=== PATIENT | female | born 1965 | race Caucasian/White ===

== ENCOUNTER 2017-10-16 16:16 | Emergency (ER) | payer OTHER, SELFPAY | END 2017-10-16 17:15 | disposition home or self-care (01) | PROVIDERS: Emergency Provider Nurse Practitioner; Family Provider Family Medicine; Visit Provider Nurse Practitioner | DX: M25.561 Pain in right knee (principal); Z79.82 Long term (current) use of aspirin; Z79.899 Other long term (current) drug therapy | CPT/HCPCS: 73562; 99201 ==

== ENCOUNTER → 2020-07-24 12:34 | Outpatient (CLI) | payer OTHER, SELFPAY ==
--- NOTE | 2020-07-24 12:45 | XR_ITS ---
PROCEDURE: XR LUMBAR SPINE MIN 4V CLINICAL INDICATION: LOW BACK PAIN COMPARISON: No exams were available for comparison FINDINGS: No fracture or dislocation. No lytic or blastic change. There is normal mineralization. The joint spaces are well-preserved. No significant degenerative/arthritic changes. No erosive changes evident. Other findings:None. IMPRESSION: No acute findings. Dictated by: Mitul Isaacs MD 07/24/2020 13:09 Mitul Isaacs MD in [place] 07/24/2020 13:09
== END ==
PROVIDERS: PCP Nurse Practitioner Family; Visit Provider Nurse Practitioner Family
DX: M54.41 Lumbago with sciatica, right side (principal)
CPT/HCPCS: 72110

== ENCOUNTER 2020-08-02 14:40 | Outpatient (RCR) | payer OTHER, SELFPAY ==
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
== END 2020-08-02 15:20 | disposition home or self-care (01) ==
LOC: PT 14:40
PROVIDERS: PCP Nurse Practitioner Family; Visit Provider Nurse Practitioner Family
DX: M54.41 Lumbago with sciatica, right side (principal); M53.3 Sacrococcygeal disorders, not elsewhere classified
CPT/HCPCS: 97163

== ENCOUNTER 2020-08-09 11:14 | Emergency (ER) | payer OTHER, SELFPAY ==
[2020-08-09 11:19] VITALS: BP 109/86; PULSE 82; RESP 16; TEMP 37.1; O2SAT 100; BMI 25.2
--- NOTE | 2020-08-09 11:30 | XR_ITS ---
PROCEDURE: XR HIP RT 2-3V W/PELVIS CLINICAL INDICATION: pain, fell COMPARISON: CR XR LUMBAR SPINE MIN 4V from 07/24/2020 FINDINGS: There is a nondisplaced fracture involving the medial aspect of the right inferior pubic ramus as well as the junction of the superior pubic ramus with the ischial on the right. In addition there is a cortical area of disruption involving the iliopectineal line on the right superiorly just lateral to the SI joint also suspicious for a nondisplaced fracture. CT may confirm this finding. The femoral neck has an unremarkable appearance. IMPRESSION: 1. Nondisplaced right superior and inferior pubic ramus fracture. 2. Avulsion type of fracture of the right ilium at the superior aspect of the iliopectineal line. CT may confirm Dictated by: Mitul Isaacs MD 08/09/2020 12:25 Mitul Isaacs MD in [place] 08/09/2020 12:25
--- NOTE | 2020-08-09 11:30 | PC.NURSE ---
rad notified of xray orders
--- NOTE | 2020-08-09 12:25 | HMH.EDGENADL ---
ED Disposition Clinical Impression: Pelvic fracture Qualifiers: Encounter type: initial encounter Pelvic bone location: multiple parts Fracture type: closed Fracture alignment: without disruption of pelvic ring Qualified Code(s): S32.82XA - Multiple fractures of pelvis without disruption of pelvic ring, initial encounter for closed fracture Disposition: Home, Self-Care Condition on Discharge: Fair Instructions: DI for Pelvic Fracture Additional Instructions: Crutches until follow-up with orthopedics. Call Dr. Hardy to arrange orthopedic follow-up within 2 weeks. Off work until you see Dr. Hardy. Tramadol for pain. Additional instructions for CONTROLLED SUBSTANCES: You have been prescribed a medication that is a controlled substance. Controlled substances include pain medications known as opiates and sedative nerve medications known as benzodiazepines. Tramadol, fioricet, and gabapentin are also controlled substances. Some common opiates include: Codeine (such as Tylenol #3) Hydrocodone (Vicodin, Lortab, Lorcet, [place]) Oxycodone (Percocet, Percodan, Oxycodone, Oxy IR) Some common benzodiazepines include: Diazepam (Valium) Lorazepam (Ativan) Alprazolam (Xanax) Clonazepam (Klonopin) Oxazepam (Serax) All of these controlled substances are highly addictive and frequently abused. Misuse can and frequently does lead to addiction as well as overdose and . Medication should be stored in a locked cabinet or other secure storage unit. Do not store the medication in a motor vehicle. Short term supplies, 3 days or less, are prescribed because of the highly addictive nature of the medication. Any of the controlled substance medication NOT taken should be disposed of properly and NOT SAVED. The recommended method of disposing of unused medications is: Place the medicines in a sealable plastic bag. If the medicine is a solid, crush it or add water to dissolve it. Add something undesirable (cat litter, coffee grounds, etc.) Dispose of sealed bag in household trash Do not flush or pour unused medicines down a sink or drain. Controlled substances should not be shared, given away or sold. Because of the addictive nature and frequent abuse, these medications are sometimes stolen. These medications should be kept in a safe place where they cannot be stolen. Do not keep them in your car or purse. Lost or stolen prescriptions for controlled substances WILL NOT BE REFILLED in this emergency department, regardless of whether a police report was filed. Prescriptions: Tramadol HCl [Tramadol 50mg Tab] 50 mg PO Q6HP PRN #20 tab PRN Reason: Moderate Pain Prescription Printed Referrals: Agustin Pickett MD [Primary Care Provider] - Lisandro Hardy MD [Staff Physician] - Forms: Work/School Release - Critical Care Critical Care Time: No Attestation: On 08/09/20, the high probability of a clinically significant, sudden or life threatening deterioration of the following system(s) required my full and direct attention, intervention and personal management. The time I documented below is in addition to time spent performing reported procedures but includes the following listed in this critical care notation. Medical Decision Making - Dae Inquiry Pt receiving controlled substance: Yes Dae was queried for this patient: No Reason not queried -: Emergent pt cond-no time Risks and benefits of using a controlled substance: were discussed with pt by me Vital Signs: 08/09/20 11:19 08/09/20 12:42 Temperature 98.8 F Temperature Source Oral Pulse Rate [Right Radial] 82 70 Respiratory Rate 16 Blood Pressure [Right Arm] 109/86 L 111/76 Blood Pressure Mean [Right Arm] 93 87 Blood Pressure Source [Right Arm] Automatic Cuff Blood Pressure Position [Right Arm] Sitting Sitting 02 Sat by Pulse Oximetry 100 100 Oxygen Delivery Method Room Air Room Air Orders (Tests/Meds): ORDERS Category Date Ti
--- NOTE | 2020-08-09 12:37 | XR_ITS ---
PROCEDURE: XR KNEE RT 3V CLINICAL INDICATION: pain COMPARISON: CR KNEE3R KNEE-3 VIEWS-RT from 10/16/2017 FINDINGS: Moderate osteoarthritic changes are present involving all 3 compartments. No acute fracture or dislocation is evident. Other findings:None. IMPRESSION: Osteoarthritis, no acute fracture Dictated by: Mitul Isaacs MD 08/09/2020 15:32 Mitul Isaacs MD in [place] 08/09/2020 15:32
--- NOTE | 2020-08-09 12:37 | CT_ITS ---
PROCEDURE: CT PELVIS WO CON CLINICAL INDICATION: pelvic fracture Right-sided pelvic pain following injury COMPARISON: No exams were available for comparison TECHNIQUE: Axial images obtained with sagittal and coronal reformats. All CT scans at the facility use one or more dose reduction, viz: automated exposure control, ma/kV adjustment per patient size (including targeted exams where dose is matched to indication, i.e. head), or iterative reconstruction technique. FINDINGS: There is a nondisplaced fracture involving the mid aspect of the right inferior pubic ramus and a nondisplaced fracture involving the right superior pubic ramus at its junction with the ischial M. this is best detected on series 601, image 56 through 59. This may only involve the superior cortical surface. The fracture does not appear to extend into the acetabulum. MRI may confirm. There is mild widening of the right SI joint. There is a nondisplaced fracture involving the right ilium just lateral to the inferior aspect of the SI joint. This extends posteriorly and laterally and somewhat superiorly. This is best demonstrated on coronal image series 601, image 69. At this area, there is ill-defined calcification both anterior and posterior to the ileum suggesting that this may represent a healing fracture with periosteal reaction. The right iliacus muscle is slightly more prominent than the left side. There is a small bone island in the left femoral head and within the left ilium. There is a mild bulging disc eccentric toward the left at L5-S1. There is a hemangioma involving the L5 vertebral body on the left. There is a small umbilical hernia which contains fat. There has been a prior hysterectomy. IMPRESSION: 1. Acute nondisplaced fracture of the right superior and inferior pubic ramus. 2. Nondisplaced fracture of the right ilium just inferior to the level of the SI joint which may represent a healing or subacute fracture as there does appear to be some periosteal reaction or calcification at the site of the fracture. Suggest follow-up to confirm stability of the calcification as other etiologies of periosteal calcification are not excluded such as neoplasm. 3. Mild widening of the right SI joint Dictated by: Mitul Isaacs MD 08/09/2020 13:35 Mitul Isaacs MD in [place] 08/09/2020 13:35
--- NOTE | 2020-08-09 12:37 | XR_ITS ---
PROCEDURE: XR KNEE LT 3V CLINICAL INDICATION: pain COMPARISON: CR KNEE3R KNEE-3 VIEWS-RT from 10/16/2017 CR XR KNEE RT 3V from 08/09/2020 FINDINGS: No fracture or dislocation. No lytic or blastic change. There is normal mineralization. There are mild osteoarthritic changes of all 3 compartments. There is a suprapatellar effusion. There is mild chondrocalcinosis of the lateral compartment. Other findings:None. IMPRESSION: Osteoarthritis with suprapatellar effusion Dictated by: Mitul Isaacs MD 08/09/2020 15:46 Mitul Isaacs MD in [place] 08/09/2020 15:46
--- NOTE | 2020-08-09 12:41 | PC.NURSE ---
harrison notified of new orders on pt, spoke with Artemio
[2020-08-09 12:42] VITALS: BP 111/76; PULSE 70; O2SAT 100
--- NOTE | 2020-08-09 14:04 | PC.NURSE ---
RIAZ ALONZO speaking with Dr. Hardy
--- NOTE | 2020-08-09 14:08 | PC.NURSE ---
Mechelle in the surgical suite called with a follow up appt for pt. Aug 23 at 2:30 pm states to have pt come at least 30 minutes early for xrays-register in the front lobby for xrays and then come to the office for appt.
[2020-08-09 14:54] VITALS: BP 128/83; PULSE 78; RESP 19; TEMP 37.1; O2SAT 97
== END 2020-08-09 14:57 | disposition home or self-care (01) ==
PROVIDERS: Emergency Provider Emergency Medicine; PCP Family Medicine
DX: S32.511A Fracture of superior rim of right pubis, initial encounter for closed fracture (principal); W01.0XXA Fall on same level from slipping, tripping and stumbling without subsequent striking against object, initial encounter; Y92.69 Other specified industrial and construction area as the place of occurrence of the external cause; Y99.0 Civilian activity done for income or pay; D64.9 Anemia, unspecified; Z90.49 Acquired absence of other specified parts of digestive tract; Z90.09 Acquired absence of other part of head and neck; Z90.710 Acquired absence of both cervix and uterus
CPT/HCPCS: 72192; 73502; 73562; 99282

== ENCOUNTER → 2020-08-23 13:36 | Outpatient (CLI) | payer OTHER, SELFPAY ==
--- NOTE | 2020-08-23 13:47 | XR_ITS ---
PROCEDURE: XR HIP RT 2-3V W/PELVIS CLINICAL INDICATION: RT pubic rami fracture follow up Follow-up fracture COMPARISON: CR XR HIP RT 2-3V W/PELVIS from 08/09/2020 FINDINGS: Healing nondisplaced fractures are present involving the right superior pubic ramus laterally in the inferior pubic ramus centrally. Mild osteoarthritic changes are present at the hips. Avulsion type fracture noted involving the right ilium superiorly and medially just lateral to the SI joint as before with mild widening of the right SI joint as before. IMPRESSION: Healing nondisplaced fracture of the pubic rami the right Dictated by: Mitul Isaacs MD 08/23/2020 15:30 Mitul Isaacs MD in [place] 08/23/2020 15:30
== END ==
PROVIDERS: PCP Family Medicine; Visit Provider Orthopaedic Surgery
DX: S32.9XXA Fracture of unspecified parts of lumbosacral spine and pelvis, initial encounter for closed fracture (principal)
CPT/HCPCS: 73502

== ENCOUNTER → 2020-09-19 12:37 | Outpatient (CLI) | payer OTHER, SELFPAY ==
--- NOTE | 2020-09-19 12:41 | XR_ITS ---
PROCEDURE: XR HIP RT 2-3V W/PELVIS CLINICAL INDICATION: RT ilimum and pelvic fx fu Follow-up fracture COMPARISON: CR XR HIP RT 2-3V W/PELVIS from 08/09/2020 CR XR HIP RT 2-3V W/PELVIS from 08/23/2020 FINDINGS: Healing fractures present involving the junction of the right superior pubic ramus with the ischium and the mid aspect of the right inferior pubic ramus. Developing callus formation is present. The right hip has an unremarkable appearance aside from mild osteoarthritic changes. There remains mild widening of the right SI joint not significantly changed with a small fracture along the iliopectineal line superiorly on the right unchanged. There is a small sclerotic focus in the left ilium laterally not significantly changed IMPRESSION: No change right-sided fractures as described Dictated by: Mitul Isaacs MD 09/19/2020 15:34 Mitul Isaacs MD in [place] 09/19/2020 15:34
== END ==
PROVIDERS: PCP Family Medicine; Visit Provider Orthopaedic Surgery
DX: S32.301D Unspecified fracture of right ilium, subsequent encounter for fracture with routine healing (principal); S32.9XXA Fracture of unspecified parts of lumbosacral spine and pelvis, initial encounter for closed fracture
CPT/HCPCS: 73502

== ENCOUNTER → 2020-12-12 14:02 | Outpatient (CLI) | payer OTHER, SELFPAY ==
--- NOTE | 2020-12-12 14:10 | XR_ITS ---
PROCEDURE: XR HIP RT 2-3V W/PELVIS CLINICAL INDICATION: rt pubic rami fracture fu Fracture follow up COMPARISON: CR XR HIP RT 2-3V W/PELVIS from 09/19/2020 FINDINGS: Healing right superior and inferior pubic rami fractures are present. Mild osteoarthritic changes are present in the right hip. IMPRESSION: Healing nondisplaced right superior and inferior pubic rami fractures Dictated by: Mitul Isaacs MD 12/12/2020 14:34 Mitul Isaacs MD in [place] 12/12/2020 14:34
== END ==
PROVIDERS: PCP Family Medicine; Visit Provider Orthopaedic Surgery
DX: S32.301D Unspecified fracture of right ilium, subsequent encounter for fracture with routine healing (principal); S32.9XXA Fracture of unspecified parts of lumbosacral spine and pelvis, initial encounter for closed fracture
CPT/HCPCS: 73502

== ENCOUNTER → 2021-01-05 17:16 | Outpatient (CLI) | payer OTHER, SELFPAY ==
[2021-01-05 18:15] LABS: Basophils % 0.4 % (0.1-2.0); Eosinophils # 0.2 K/mm3 (0.0-0.4); Eosinophils % 2.4 % (0.1-12.0); Hematocrit 44.5 % (37.0-47.0); Hemoglobin 14.7 g/dL (12.2-16.2); Lymphocytes # 2.3 K/mm3 (0.7-4.5); Mean Corpuscular HGB Conc 32.9 g/dL (31.8-35.4); Mean Corpuscular Hemoglobin 29.3 pg (27.0-31.2); Mean Platelet Volume 8.3 fl (7.4-10.4); Monocytes # 0.5 K/mm3 (0.1-1.0); Monocytes % 5.6 % (1.7-9.3); Neutrophils # 5.6 K/mm3 (1.8-7.8); Neutrophils % 64.5 % (37.0-80.0); Platelet Count 310 K/mm3 (142-424); White Blood Count 8.6 K/mm3 (4.8-10.8)
[2021-01-05 18:22] LABS: Alanine Aminotransferase 26 U/L (12-78); Albumin Level 4.9 g/dl (3.5-5.0); Albumin/Globulin Ratio 1.3 (1.1-1.8); Alkaline Phosphatase 100 U/L (38-126); Anion Gap 11.4 mEq/L (5-15); Aspartate Amino Transferase 28 U/L (14-36); Bilirubin,Total 0.4 mg/dl (0.2-1.3); Blood Urea Nitrogen 16 mg/dl (7-17); Calcium 10.1 mg/dl (8.4-10.2); Carbon Dioxide 28 mmol/L (22.0-30.0); Chloride 104 mmol/L (98-107); Chol/HDL Ratio 4.7 (1-3.5); Cholesterol 264 mg/dl (140-200); Estimated Glomerular Filt Rate 87 ml/min (>60); GFR (African American) 106 ML/MIN (>60); Globulin 3.7 g/dL (1.3-3.2); Glucose 113 mg/dl (74-100); HDL Cholesterol 56 mg/dl (40-60); Potassium 4.4 mmoL/L (3.5-5.1); Sodium 139 mmol/L (136-145); Total Protein,Serum 8.6 g/dl (6.3-8.2); Triglycerides 119 mg/dl (30-150); VLDL Cholesterol 24 mg/dL (0-40)
[2021-01-05 18:33] LABS: Direct LDL Cholesterol 173.04 mg/dL (100-129)
[2021-01-05 18:39] LABS: T4 (Thyroxine) 11.5 ug/dl (5.53-11.0)
[2021-01-05 18:40] LABS: 25-OH Vitamin D, Total 61.1 ng/mL (30-100)
[2021-01-05 18:53] LABS: Thyroid Stimulating Hormone 4.35 uIU/mL (0.465-4.68)
== END ==
PROVIDERS: Visit Provider Nurse Practitioner Family
DX: M81.0 Age-related osteoporosis without current pathological fracture (principal)
CPT/HCPCS: 80053; 80061; 82306; 84436; 84443; 85025

== ENCOUNTER → 2021-01-31 17:47 | Outpatient (CLI) | payer OTHER, SELFPAY ==
[2021-01-31 18:41] LABS: Hemoglobin A1C 5.9 % (4.0-6.0)
== END ==
PROVIDERS: Visit Provider Nurse Practitioner Family
DX: R73.09 Other abnormal glucose (principal)
CPT/HCPCS: 83036

== ENCOUNTER → 2021-02-19 09:42 | Outpatient (CLI) | payer OTHER, SELFPAY ==
--- NOTE | 2021-02-19 09:42 | MM_ITS ---
PROCEDURE: MM DIG SCREENING MAMM BI W/CAD Digital Breast Tomosynthesis Included CLINICAL INDICATION: screening for breast ca There is no personal or family history of breast cancer. There has been a previous biopsy right breast for benign disease. Patient complains of sharp pains left breast past couple of days COMPARISON: MG DMSB DIGITAL MAMM-SCREEN BILATERAL from 12/19/2011 MG DMSB DIG MAMM-SCREEN ABELARDO from 08/19/2014 MG DMDXUR DIG MAMM-DX UNI-RT from 06/19/2015 MG DMSB DIG MAMM-SCREEN ABELARDO from 12/15/2015 TECHNIQUE: Standard CC and MLO images and 3D Tomosynthesis was obtained. R2 CAD reviewed. FINDINGS: Moderate scattered fibroglandular densities are seen in the central portions of both breasts. There is a biopsy clip right breast. There is a mole marker on each breast. There is a benign-appearing microcalcification right breast probably a calcified oil cyst. There is no suspicious lesion and no suspicious microcalcifications. There are fatty replaced nodes in both axilla. IMPRESSION: Moderate breast density with no suspicious lesions seen BI-RAD Category: 2 Benign Finding(s) FOLLOW-UP: 1YR 1 Year Follow-up (A letter has been sent to the patient regarding results of the study.) Dictated by: Dr. Dwight Morris MD 02/20/2021 07:58 Dr. Dwight Morris MD in [place] 02/20/2021 07:58
== END ==
PROVIDERS: PCP Emergency Medicine; Visit Provider Nurse Practitioner Family
DX: Z12.31 Encounter for screening mammogram for malignant neoplasm of breast (principal)
CPT/HCPCS: 77063; 77067

== ENCOUNTER → 2021-04-03 08:06 | Outpatient (CLI) | payer OTHER, SELFPAY | PROVIDERS: Visit Provider Internal Medicine Gastroenterology | DX: Z01.812 Encounter for preprocedural laboratory examination (principal); Z20.822 Contact with and (suspected) exposure to COVID-19; Z12.11 Encounter for screening for malignant neoplasm of colon | CPT/HCPCS: U0003 ==

== ENCOUNTER 2021-04-06 07:40 | Day surgery (SDC) | payer OTHER, SELFPAY ==
[2021-03-27 09:53] VITALS: BMI 29.5
[2021-04-06] VITALS (7 sets, daily range): BP systolic 110–153; BP diastolic 68–98; PULSE 60–97; RESP 18; TEMP 36.3–36.7; O2SAT 95–99
[2021-04-06 08:22] LABS: POC Glucose,Bedside 111 (70-110)
--- NOTE | 2021-04-06 08:55 | HMH.ANESCL ---
[facility] Anesthesia Checklist - Patient Identification Patient Identification: Arm Band - Structural Data Admitted From: Home Planned Operative Procedure/s: colonoscopy Consent for Planned Operative Procedure(s) Verified: Yes Verified Documents: Surgical Consent, History and Physical - NPO Status Verified Time NPO: 00:00 - Additional verifications Anesthesia Reactions: No - Airway Assessment C-Spine Mobility Assessed: Yes (mp2) TMJ Mobility Assessed: Yes Dentition: Good Dentition - Neurological Assessment Level of Consciousness: Awake, Alert - Anesthesia Plan Anesthesia Risk discussed: Yes Anesthesia Plan: Verified ASA Class: II Anesthesia Type: MAC [facility] History I have reviewed the patient's past medical history: Yes Medical History: Reports:: Cancer (cervix) Denies:: Diabetes Mellitus Type 1, Diabetes Mellitus Type 2 (pre diabetic), Internal Pacemaker, MRSA, Seizures *Have you ever received a pneumonia vaccine?: No *Have you received a flu vaccine this season?: No Other Medical History: Reports: Anemia Anesthesia experience/problems:: nac Laterality Cases: Right: Arthroscopy Knee, Breast Biopsy, Bilateral: Tonsillectomy Other Surgeries: Yes: Appendectomy, Hysterectomy-Total, Other. No: Pacemaker Amputation: No Fractures: No - *Social History Last grade of school completed: Advanced degree Smoking Status: Never smoker Alcohol Intake: never Substance Use Type: denies use *Occupational Status:: unemployed Housing: house Household Members: spouse *Travel in the last 8 weeks: None Family Hx:: Cancer
--- NOTE | 2021-04-06 09:26 | HMH.PROC ---
[facility] Procedure Note Procedure Note:: Colonoscopy Procedure Report: Colonoscopy with cold snare polypectomy Endoscopist: Alexander Sutherland II, MD Referring physician: ARNOL Bowling Date of Procedure: April 06, 2021 Equipment: Olympus 190 variable stiffness pediatric colonoscope Sedation: MAC sedation Indication: Mrs. Rojas is a 55-year-old female who is here for diagnostic colonoscopy secondary to a positive Cologuard test. She reports no abdominal pain, weight loss, change in her bowel habits or rectal bleeding. She reports no family history of colon cancer. This is her first colonoscopy. Procedure: Prior to the procedure, a history and physical exam was performed, and patient's medications and allergies were reviewed. The risks, benefits and alternatives of the sedation and procedure were discussed with the patient. All questions were answered and informed consent was obtained. The patient was brought to the procedure room. Patient identification and proposed procedure were verified by the physician and the nurse. The patient was placed in a left lateral decubitus position and the scope was passed under direct vision. Throughout the procedure, the patient's blood pressure, pulse, and oxygen saturations were monitored continuously. The colonoscopy was accomplished without difficulty. The patient tolerated the procedure well. Findings: On digital rectal examination there was normal rectal tone. There were no external hemorrhoids. Palpably, there was a mass along the left lateral margin of the rectum approximately 8 cm from the anal verge. The colonoscope was introduced through the anal canal to the rectum and advanced to the cecum. The ileocecal valve and appendiceal orifice were identified. The scope was advanced a short distance into the ileum which appeared grossly normal. The scope was then withdrawn into the colon. There were 3 diminutive polyps of the cecum (3, 3 and 4 mm) and 1 polyp of the sigmoid (6 mm) which were removed via cold snare polypectomy and placed in the cecal formalin jar. The remainder of the cecum, ascending, transverse, descending and sigmoid colon were normal. Within the rectum at approximately 8 cm from the anal verge was a large bulbous multilobulated polypoid mass lesion that encompassed one half the circumference of the rectal lumen and was left lateral lumen. Multiple sections were removed and this appeared to be advanced villous adenoma with possible early adenocarcinoma. This encompassed 4.5 to 5 cm. This did not extend into the distal rectum. This was palpable digitally along the left lateral margin and did not appear to be fixed. The distal rectum was not involved and upon retroflexion within the rectum there were grade 1-2 internal hemorrhoids.The preparation was excellent throughout with [place] Preparation Score of 9. The cecal time was 14 minutes. Impression: 1. Large rectal mass (4.5 to 5 cm)?along left lateral margin 8 cm from anal verge?advanced adenoma (probable villous adenoma and possible early adenocarcinoma) 2. 4 diminutive colon polyps Plan: I will follow up the polyp histology. If pathology shows a villous adenoma without dysplasia, this may possibly be removed via endoscopic mucosal resection/endoscopic mucosal dissection. If there is high-grade dysplasia or adenocarcinoma, favorably, surgical resection is warranted. I will obtain CEA level and labs (CBC, iron studies). I will await the pathology.
[2021-04-06 10:23] LABS: Basophils % 0.4 % (0.1-2.0); Eosinophils # 0.1 K/mm3 (0.0-0.4); Eosinophils % 0.5 % (0.1-12.0); Hematocrit 41.7 % (37.0-47.0); Hemoglobin 13.9 g/dL (12.2-16.2); Lymphocytes # 1.2 K/mm3 (0.7-4.5); Lymphocytes % 12.8 % (10-50); Mean Corpuscular HGB Conc 33.4 g/dL (31.8-35.4); Mean Corpuscular Hemoglobin 29.2 pg (27.0-31.2); Mean Corpuscular Volume 87.5 fl (81-99); Mean Platelet Volume 8.4 fl (7.4-10.4); Monocytes # 0.3 K/mm3 (0.1-1.0); Monocytes % 3.1 % (1.7-9.3); Neutrophils # 7.9 K/mm3 (1.8-7.8); Neutrophils % 83.1 % (37.0-80.0); Platelet Count 294 K/mm3 (142-424); Red Blood Count 4.77 M/mm3 (4.20-5.40); Red Cell Distribution Width 12.7 % (11.5-17.5); White Blood Count 9.5 K/mm3 (4.8-10.8)
[2021-04-06 10:56] LABS: Alanine Aminotransferase 34 U/L (12-78); Albumin Level 4.5 g/dl (3.5-5.0); Albumin/Globulin Ratio 1.5 (1.1-1.8); Alkaline Phosphatase 88 U/L (38-126); Anion Gap 10.3 mEq/L (5-15); Aspartate Amino Transferase 31 U/L (14-36); Bilirubin,Total 0.5 mg/dl (0.2-1.3); Blood Urea Nitrogen 15 mg/dl (7-17); Calcium 9.4 mg/dl (8.4-10.2); Carbon Dioxide 28 mmol/L (22.0-30.0); Chloride 110 mmol/L (98-107); Creatinine Clearance Estimated 133 mL/min (50-200); Estimated Glomerular Filt Rate 104 ml/min (>60); GFR (African American) 126 ML/MIN (>60); Globulin 3.1 g/dL (1.3-3.2); Glucose 113 mg/dl (74-100); Potassium 4.3 mmoL/L (3.5-5.1); Sodium 144 mmol/L (136-145); Total Protein,Serum 7.6 g/dl (6.3-8.2)
[2021-04-06 11:26] LABS: Iron 45 ug/dL (37-170)
[2021-04-06 11:38] LABS: Total Iron Binding Capacity 319 ug/dL (265-497)
[2021-04-06 12:06] LABS: Ferritin 54.8 ng/ml (11.1-264)
[2021-04-07 08:53] LABS: CEA 0.6 ng/mL (0.0-4.7)
== END 2021-04-06 10:24 | disposition home or self-care (01) ==
LOC: OUTP 07:41
PROVIDERS: PCP Nurse Practitioner Family; Visit Provider Internal Medicine Gastroenterology
PROC: 0DJD8ZZ Inspection of Lower Intestinal Tract, Via Natural or Artificial Opening Endoscopic (ICD-10-PCS; CPT 45378; principal; 2021-04-06 09:00)
DX: D12.0 Benign neoplasm of cecum (principal); D12.5 Benign neoplasm of sigmoid colon; D12.8 Benign neoplasm of rectum; Z85.41 Personal history of malignant neoplasm of cervix uteri; Z80.9 Family history of malignant neoplasm, unspecified; Z79.82 Long term (current) use of aspirin
CPT/HCPCS: 45385; 80053; 82378; 82728; 82962; 83540; 83550; 85025

== ENCOUNTER 2021-07-05 09:01 | Emergency (ER) | payer OTHER, SELFPAY ==
[2021-07-05 09:05] VITALS: BP 132/86; PULSE 95; RESP 18; TEMP 37; O2SAT 99; BMI 28.9
--- NOTE | 2021-07-05 09:44 | HMH.EDUTC ---
[facility] [place] Clinical Impression: Viral syndrome, Exposure to COVID-19 virus Disposition: Home, Self-Care Condition on Discharge: Good Instructions: DI for COVID-19 (Suspected or Confirmed ), Preventing the Spread of Coronavirus Discharge Instructions Additional Instructions: Drink plenty of fluids. Take tylenol for pain or fever. Return if you begin to have difficulty breathing. Follow up with your regular doctor. GO TO THE ER FOR ANY WORSENING SYMPTOMS Quarantine until you know the results of your covid-19 test. If it is positive, the health department should call you and give you further instructions about your length of Quarantine and other things. Notify your school or workplace of your results and follow their instructions regarding return to work/school. Referrals: Lisa Tijerina APRN [Primary Care Provider] - Time of Disposition: 09:45 Medical Decision Making - Medical Records Medical records reviewed: No: I reviewed the patient's medical records. - Dae Inquiry Pt receiving controlled substance: No Vital Signs: 07/05/21 09:05 07/05/21 09:49 Temperature 98.6 F 98.6 F Temperature Source Oral Pulse Rate 95 H Pulse Rate [Right Brachial] 95 H Respiratory Rate 18 18 Blood Pressure 132/86 Blood Pressure [Right Arm] 132/86 Blood Pressure Mean [Right Arm] 101 Blood Pressure Source [Right Arm] Automatic Cuff Blood Pressure Position [Right Arm] Sitting 02 Sat by Pulse Oximetry 99 Oxygen Delivery Method Room Air [facility] [place]PI - General Stated complaint: s throat, cough,sob, head, bodyaches, no taste Time Seen by Provider: 07/05/21 09:15 Mode of Arrival: Ambulatory Source of Information: Patient Limitations: No Limitations Description of Symptoms (Recalled from Triage Doc. by RN): PATIENT C/O HEADACHE, NAUSEA, VOMITING, AND BODY ACHES THAT STARTED YESTERDAY. REQUESTING COVID TEST HEENT Symptoms (Recalled from RN notes): Yes Resp Symptoms (Recalled from RN notes): No Skin Symptoms (Recalled from RN notes): No MS Symptoms (Recalled from RN notes): No Functional Status (Recalled from RN notes): WNL - History of Present Illness Provider Complaint: She has been having gi upset, scratchy sore throat and she has felt bad for the past 2 days. She has been vaccinated against covid-19, but she would like to be checked. - Related Data Home Medications Medication Instructions Recorded Confirmed vitamin B12 500 mcg-folic acid 400 1 tab PO QDAY 11/19/17 05/03/21 mcg tablet multivitamin 1 tab PO DAILY 01/05/21 05/03/21 Aspirin [Aspirin 81mg EC Tab] 81 mg PO DAILY 03/27/21 05/03/21 Blood-Glucose Meter [Blood Glucose See Rx Instructions .ROUTE 03/27/21 05/03/21 Meter] .MEDSUPPLY Calcium Carbonate [Calcium] 600 mg PO DAILY 03/27/21 05/03/21 Cholecalciferol (Vitamin D3) 50 mcg PO DAILY 03/27/21 05/03/21 [Vitamin D3] Lancets See Rx Instructions .ROUTE 03/27/21 05/03/21 .MEDSUPPLY Previous Rx's Medication Instructions Recorded alprazolam 0.25 mg tablet 0.25 mg PO BID PRN #14 tab 05/03/21 blood sugar diagnostic See Rx Instructions .ROUTE 05/03/21 .MEDSUPPLY #50 each Allergies Allergy/AdvReac Type Severity Reaction Status Date / Time No Known Allergies Allergy Verified 05/03/21 09:31 - Worker's Comp Is this a Worker's Comp case?: No [facility] History - Hepatitis A Screen Drug use history?: No High risk sexual behaviors?: No History of sexually transmitted infection?: No Currently employed?: No Childcare worker?: No Do you have indoor plumbing?: Yes Do you have electricity?: Yes Attestation statement:: This patient has been screened for Hepatitis A risk factors. I have reviewed the patient's past medical history: Yes Medical History: Reports:: Cancer Denies:: Diabetes Mellitus Type 1, Diabetes Mellitus Type 2, Internal Pacemaker, MRSA, Seizures Other Medical History: Reports: Anemia Laterality Cases: Right: Arthroscopy Knee, Breast Biopsy, [place]
[2021-07-05 09:49] VITALS: BP 132/86; PULSE 95; RESP 18; TEMP 37; O2SAT 99
== END 2021-07-05 09:53 | disposition home or self-care (01) ==
PROVIDERS: Emergency Provider Nurse Practitioner Family; PCP Nurse Practitioner Family
DX: B34.9 Viral infection, unspecified (principal); Z20.822 Contact with and (suspected) exposure to COVID-19
CPT/HCPCS: 99202; G0463; U0003

== ENCOUNTER → 2021-08-03 09:06 | Outpatient (CLI) | payer OTHER, SELFPAY ==
[2021-08-03 09:30] LABS: Basophils % 0.5 % (0.1-2.0); Eosinophils # 0.2 K/mm3 (0.0-0.4); Eosinophils % 2.5 % (0.1-12.0); Hematocrit 43.6 % (37.0-47.0); Hemoglobin 14.5 g/dL (12.2-16.2); Lymphocytes % 27.5 % (10-50); Mean Corpuscular HGB Conc 33.3 g/dL (31.8-35.4); Mean Corpuscular Hemoglobin 29.6 pg (27.0-31.2); Mean Corpuscular Volume 88.9 fl (81-99); Mean Platelet Volume 8.6 fl (7.4-10.4); Monocytes # 0.4 K/mm3 (0.1-1.0); Monocytes % 5.1 % (1.7-9.3); Neutrophils # 4.6 K/mm3 (1.8-7.8); Neutrophils % 64.4 % (37.0-80.0); Platelet Count 314 K/mm3 (142-424); Red Cell Distribution Width 12.7 % (11.5-17.5); White Blood Count 7.1 K/mm3 (4.8-10.8)
[2021-08-03 10:14] LABS: Alanine Aminotransferase 33 U/L (12-78); Albumin Level 4.4 g/dl (3.5-5.0); Albumin/Globulin Ratio 1.3 (1.1-1.8); Alkaline Phosphatase 80 U/L (38-126); Anion Gap 11.3 mEq/L (5-15); Aspartate Amino Transferase 29 U/L (14-36); Bilirubin,Total 0.2 mg/dl (0.2-1.3); Blood Urea Nitrogen 13 mg/dl (7-17); Calcium 9.7 mg/dl (8.4-10.2); Carbon Dioxide 28 mmol/L (22.0-30.0); Chloride 106 mmol/L (98-107); Chol/HDL Ratio 4.8 (1-3.5); Cholesterol 239 mg/dl (140-200); Estimated Glomerular Filt Rate 128 ml/min (>60); GFR (African American) 155 ML/MIN (>60); Globulin 3.3 g/dL (1.3-3.2); Glucose 110 mg/dl (74-100); HDL Cholesterol 50 mg/dl (40-60); Potassium 4.3 mmoL/L (3.5-5.1); Sodium 141 mmol/L (136-145); Total Protein,Serum 7.7 g/dl (6.3-8.2); Triglycerides 144 mg/dl (30-150); VLDL Cholesterol 29 mg/dL (0-40)
[2021-08-03 10:32] LABS: T4 (Thyroxine) 11.9 ug/dl (5.53-11.0)
[2021-08-03 10:45] LABS: Thyroid Stimulating Hormone 3.41 uIU/mL (0.465-4.68)
== END ==
PROVIDERS: Visit Provider Nurse Practitioner Family
DX: R73.03 Prediabetes (principal); E66.9 Obesity, unspecified; Z68.28 Body mass index [BMI] 28.0-28.9, adult
CPT/HCPCS: 36415; 80053; 80061; 83036; 84436; 84443; 85025

== ENCOUNTER → 2022-01-25 16:00 | Outpatient (CLI) | payer OTHER, SELFPAY ==
[2022-01-25 16:07] LABS: Basophils # 0.1 K/mm3 (0-0.2); Eosinophils # 0.2 K/mm3 (0.0-0.4); Eosinophils % 2.8 % (0.1-12.0); Hematocrit 45.4 % (37.0-47.0); Hemoglobin 14.8 g/dL (12.2-16.2); Mean Corpuscular HGB Conc 32.7 g/dL (31.8-35.4); Mean Corpuscular Volume 91.9 fl (81-99); Mean Platelet Volume 9.8 fl (7.4-10.4); Monocytes # 0.5 K/mm3 (0.1-1.0); Monocytes % 5.9 % (1.7-9.3); Neutrophils # 5.2 K/mm3 (1.8-7.8); Neutrophils % 65.4 % (37.0-80.0); Platelet Count 332 K/mm3 (142-424); Red Blood Count 4.94 M/mm3 (4.20-5.40); Red Cell Distribution Width 13.2 % (11.5-17.5); White Blood Count 7.9 K/mm3 (4.8-10.8)
[2022-01-25 17:07] LABS: Hemoglobin A1C 5.9 % (4.0-6.0)
[2022-01-25 17:09] LABS: Chloride 106 mmol/L (98-107)
[2022-01-25 17:10] LABS: Potassium 4.1 mmoL/L (3.5-5.1); Sodium 141 mmol/L (136-145)
[2022-01-25 17:12] LABS: Alanine Aminotransferase 38 U/L (12-78); Alkaline Phosphatase 100 U/L (38-126); Anion Gap 14.1 mEq/L (5-15); Aspartate Amino Transferase 39 U/L (14-36); Bilirubin,Total 0.4 mg/dl (0.2-1.3); Blood Urea Nitrogen 12 mg/dl (7-17); Carbon Dioxide 25 mmol/L (22.0-30.0); Estimated Glomerular Filt Rate 74 ml/min (>60); GFR (African American) 90 ML/MIN (>60)
[2022-01-25 17:13] LABS: Albumin Level 4.5 g/dl (3.5-5.0); Albumin/Globulin Ratio 1.5 (1.1-1.8); Calcium 9.1 mg/dl (8.4-10.2); Chol/HDL Ratio 4.3 (1-3.5); Cholesterol 239 mg/dl (140-200); Globulin 3.1 g/dL (1.3-3.2); Glucose 79 mg/dl (74-100); HDL Cholesterol 56 mg/dl (40-60); Total Protein,Serum 7.6 g/dl (6.3-8.2); Triglycerides 189 mg/dl (30-150); VLDL Cholesterol 38 mg/dL (0-40)
[2022-01-25 17:25] LABS: Direct LDL Cholesterol 142.26 mg/dL (100-129)
[2022-01-25 17:32] LABS: 25-OH Vitamin D, Total 53.1 ng/mL (30-100); T4 (Thyroxine) 11.4 ug/dl (5.53-11.0)
[2022-01-25 17:45] LABS: Thyroid Stimulating Hormone 2.91 uIU/mL (0.465-4.68)
[2022-01-30 10:13] LABS: C-Peptide 4.5 ng/mL (1.1-4.4)
== END ==
PROVIDERS: Visit Provider Nurse Practitioner Family
DX: R73.03 Prediabetes (principal); E66.9 Obesity, unspecified; Z68.31 Body mass index [BMI] 31.0-31.9, adult; Z79.899 Other long term (current) drug therapy
CPT/HCPCS: 80053; 80061; 82043; 82306; 83036; 84436; 84443; 84681; 85025

== ENCOUNTER → 2022-02-14 09:19 | Outpatient (CLI) | payer OTHER, SELFPAY | PROVIDERS: Visit Provider Surgery | DX: Z01.812 Encounter for preprocedural laboratory examination (principal); Z11.52 Encounter for screening for COVID-19 | CPT/HCPCS: C9803; U0003; U0005 ==

== ENCOUNTER → 2022-02-21 09:36 | Outpatient (CLI) | payer OTHER, SELFPAY ==
--- NOTE | 2022-02-21 09:36 | MM_ITS ---
PROCEDURE INFORMATION: Exam: MG Bilateral Screening 3D Mammography Exam date and time: 02/21/2022 9:51 AM Age: 56 years old Clinical indication: Screening examination TECHNIQUE: Imaging protocol: Bilateral Screening tomosynthesis and 2D mammography including computer-aided detection (CAD) when performed. COMPARISON: 1. MG MM DIG SCREENING MAMM BI W/CAD 02/19/2021 10:08 AM 2. MG DMSB DIG MAMM-SCREEN ABELARDO 12/15/2015 4:26 PM FINDINGS: MAMMOGRAPHY: Breast composition: The breasts are heterogeneously dense, which may obscure small masses. Mass: None. Architectural distortion: None. Calcifications: No suspicious calcifications. Asymmetric density: None. Skin thickening: None. Axillary adenopathy: None. IMPRESSION: No mammographic evidence of malignancy. Annual screening is recommended unless otherwise clinically indicated. ASSESSMENT: BI-RADS Category 1: Negative
== END ==
PROVIDERS: PCP Nurse Practitioner Family; Visit Provider Nurse Practitioner Family
DX: Z12.31 Encounter for screening mammogram for malignant neoplasm of breast (principal)
CPT/HCPCS: 77063; 77067

== ENCOUNTER → 2022-03-11 11:45 | Outpatient (CLI) | payer OTHER, SELFPAY ==
[2022-03-11 14:06] LABS: Amphetamine/Metha Screen,Urine Negative ng/ml (<1000); Barbiturates Screen,Urine Negative ng/ml (<200)
[2022-03-11 14:08] LABS: Benzodiazepines Screen,Urine Negative ng/ml (<200); Cannabinoid Screen,Urine Negative ng/ml (<50)
[2022-03-11 14:09] LABS: Cocaine Screen,Urine Negative ng/ml (<300); Methadone Screen,Urine Negative ng/ml (<300)
[2022-03-11 14:10] LABS: Opiate Screen,Urine Negative ng/ml (<300)
[2022-03-11 14:11] LABS: Phencyclidine Screen,Urine Negative ng/ml (<25)
== END ==
PROVIDERS: PCP Nurse Practitioner Family; Visit Provider Nurse Practitioner Family
DX: F41.9 Anxiety disorder, unspecified (principal)
CPT/HCPCS: 80305; 80346

== ENCOUNTER → 2023-07-09 12:47 | Outpatient (CLI) | payer OTHER, SELFPAY ==
--- NOTE | 2023-07-09 12:50 | MM_ITS ---
PROCEDURE INFORMATION: Exam: MG Bilateral Screening 3D Mammography Exam date and time: 07/09/2023 12:51 PM Age: 58 years old Clinical indication: Screening examination TECHNIQUE: Imaging protocol: Bilateral Screening tomosynthesis and 2D mammography including computer-aided detection (CAD) when performed. COMPARISON: 1. MG MM DIG SCREENING MAMM BI W/CAD 02/21/2022 9:51 AM 2. MG MM DIG SCREENING MAMM BI W/CAD 02/19/2021 10:08 AM FINDINGS: MAMMOGRAPHY: Breast composition: The breasts are heterogeneously dense, which may obscure small masses. Mass: Questionable partially circumscribed 0.9 cm mass in the posterior right upper breast only well seen in the MLO projection Architectural distortion: None. Calcifications: No suspicious calcifications. Asymmetric density: None. Skin thickening: None. Axillary adenopathy: None. IMPRESSION: Patient to be recalled for spot compression views of the right breast in the CC and MLO projections, a full 90 degree lateral view, and right breast ultrasound for further evaluation of a right breast mass. ASSESSMENT: BI-RADS Category 0: Incomplete- Need Additional Imaging Evaluation and/or Prior Mammograms for Comparison
== END ==
PROVIDERS: PCP Nurse Practitioner Family; Visit Provider Nurse Practitioner Family
DX: Z12.31 Encounter for screening mammogram for malignant neoplasm of breast (principal)
CPT/HCPCS: 77063; 77067

== ENCOUNTER → 2023-08-25 09:46 | Outpatient (CLI) | payer OTHER, SELFPAY ==
--- NOTE | 2023-08-25 09:50 | US_ITS ---
PROCEDURE INFORMATION: Exam: US Right Breast, Complete MG Right Diagnostic Breast Tomosynthesis Exam date and time: 08/25/2023 9:58 AM Age: 58 years old Clinical indication: Patient recalled on the basis of a screening mammogram for further evaluation; Right breast; mass TECHNIQUE: Imaging protocol: Complete ultrasound of all four quadrants of the right breast and the retroareolar regions, including ultrasound of the axilla when performed. Right Diagnostic tomosynthesis and 2D mammography including computer-aided detection (CAD) when performed. Unilateral or bilateral exam. COMPARISON: MG MM DIG SCREENING MAMM BI W/CAD 07/09/2023 12:51 PM FINDINGS: MAMMOGRAPHY: Digital diagnostic spot compression views of the right breast and 90 degree lateral view of the right breast demonstrate normal overlapping fibroglandular structures without persistent mass or asymmetry identified. ULTRASOUND: Sonographic images of the right breast including the retroareolar region, all 4 quadrants and the axilla do not demonstrate any solid masses. Few scattered predominantly periareolar subcentimeter cysts are present. No architectural distortion or acoustical shadowing. No skin thickening or axillary adenopathy. IMPRESSION: No mammographic or sonographic evidence of malignancy. Annual bilateral mammographic screening is recommended unless otherwise clinically indicated. ASSESSMENT: BI-RADS Category 2: Benign
== END ==
PROVIDERS: PCP Nurse Practitioner Family; Visit Provider Nurse Practitioner Family
DX: R92.8 Other abnormal and inconclusive findings on diagnostic imaging of breast (principal)
CPT/HCPCS: 76641; 77061; 77065; G0279

== ENCOUNTER 2024-02-24 10:50 | Outpatient (CLI) | payer OTHER, SELFPAY ==
--- NOTE | 2024-02-24 10:58 | XR_ITS ---
FINAL REPORT CLINICAL HISTORY: CHEST PAIN after fall, right rib pain COMPARISON: None FINDINGS: RIGHT RIBS: A single view of the chest with 3 views of the right ribs were obtained. There is no acute cardiopulmonary process. No pneumothorax is identified. No displaced rib fracture identified. IMPRESSION: Unremarkable right rib series Reviewed, Interpreted and Dictated by Yony Andrews MD Transcribed by Cristin Lea Authenticated and [facility]
--- NOTE | 2024-02-24 10:58 | XR_ITS ---
FINAL REPORT TECHNIQUE: Chest PA & Lateral CLINICAL HISTORY: CHEST PAIN after fall COMPARISON: None FINDINGS: 2 views of the chest were performed. The heart size is normal. The mediastinum is within normal limits. There is no acute cardiopulmonary process. There are no pleural effusions. There is no pneumothorax. The bony thorax appears intact. IMPRESSION: No acute cardiopulmonary process. Reviewed, Interpreted and Dictated by Yony Andrews MD Transcribed by Cristin Lea Authenticated and [facility]
== END 2024-02-24 23:59 | disposition home or self-care (01) ==
PROVIDERS: PCP Nurse Practitioner Family; Visit Provider Nurse Practitioner Family
DX: R07.9 Chest pain, unspecified (principal); R07.82 Intercostal pain
CPT/HCPCS: 71046; 71100